=== PATIENT | male | born 1965 | race African-American/Black ===

== ENCOUNTER 2021-01-26 13:47 | Emergency (ER) | payer MEDICARE, SELFPAY ==
[2021-01-26 13:48] VITALS: BP 168/88; PULSE 51; RESP 14; TEMP 36.5; O2SAT 97; BMI 34.0
--- NOTE | 2021-01-26 14:16 | EDS_ITS ---
HPI History of Present Illness Chief Complaint: Rash Informant: patient Onset/Context/Timing Onset: Weeks (3) Context: Gradual Onset Timing: Continuous Quality: very itchy Location: upper back, tops of shoulders, a little on R lower leg Current Severity: Moderate Maximum Severity: Moderate Worsened by: unk Relieved by: nothing but not trying any specific treatments Associated Symptoms Associated Symptoms: none Narrative Narrative: Itchy rash on his upper back and tops of his shoulders, few patches on his right lower arenas, the only thing patient can think of that is different is he is wearing a new work shirt that he states was recycled from someone else and given to him. He has not changed any detergents or soaps/shampoos lately, denies any medication changes, denies any swelling, shortness of breath, lightheadedness, syncope. He denies any pain. [facility] Medical History Type 2 diabetes mellitus Home Medications hydrocortisone 1 applic TOPICAL TID PRN #20 g 01/26/21 [Rx Last Taken Unknown] prednisone 20 mg PO DAILY #5 tab 01/26/21 [Rx Last Taken Unknown] Allergy/AdvReac Type Severity Reaction Status Date / Time No Known Allergies Allergy Verified 01/26/21 13:48 Social History Smoking Status: Unknown if ever smoked ROS ROS ED Constitutional Constitutional ED: Denies chills or fever(s) Eyes Eyes: Denies blurry vision or change in vision ENT ENT ED: Denies throat swelling or tongue swelling Cardiovascular Cardiovascular: Denies chest pain or palpitations Respiratory/Chest Respiratory/Chest: Denies cough or dyspnea Gastrointestinal Gastrointestinal: Denies diarrhea, nausea or vomiting Musculoskeletal Musculoskeletal: Denies back pain, myalgias or neck pain Integumentary Reports rash; Denies abscess Neurologic Neurologic: Denies headache(s), paresthesias or weakness Allergic/Immunologic Allergic/Immunologic ED: Denies mouth swelling or tongue swelling EXAM Physical Exam Const Vital Signs: 01/26/21 13:48 Temperature 97.7 F L Temperature Source Temporal Pulse Rate 51 L Respiratory Rate 14 Blood Pressure 168/88 H Blood Pressure Mean 114 Pulse Ox 97 Oxygen Delivery Method Room Air Positive well nourished, well developed and obese General Appearance ED: well developed and NAD Nutritional Appearance: obese HEENT Reports moist mucous membranes Negative for trauma or tenderness Eyes PERRL and EOMs intact bilaterally Neck no lymphadenopathy and supple Resp normal respiratory effort and clear to auscultation bilaterally Cardio regular rate and regular rhythm Rate: Negative for tachycardic Neuro oriented x3 and CN's II-XII intact bilaterally Sensorium / Orientation: alert Sensory Exam: No sensory level loss detected Motor Exam: strength 5/5 throughout Psych mental status grossly normal and thought process normal Skin no wounds Skin Narrative: Patchy nontender rash consistent with urticaria with some dried areas as well across the patient's upper back, the worst area is on top of his shoulders but there is a fairly sharp demarcation anteriorly where it does not progress down into the chest. It also progresses into his upper arms bilaterally, but cuts off before the elbows. Couple of small patches on the anterior right lower leg, but nowhere else. MDM MDM MDM Narrative Medical decision making narrative: Patient states his new work shirt is short- sleeved. It may be causing a contact dermatitis here. I recommend putting a cotton shirt that he knows does not make him react underneath of it, and since he is itching so bad we will try a short course of low-dose prednisone since he is a diabetic, just for 5 days, if his sugars go up to the 350-400 range he should discontinue it immediately, and we will also prescribe him topical steroid. Follow-up with dermatology if this does not help and he is comfortable with that plan. No signs of anaphylaxis. Discharge Plan Triage Chief Complaint: Rash ED Provider: Lyndon Ballesteros Dx/Rx/DC Orders Clinical Impression: Contact dermatitis Instructions: ED Contact Dermatitis Prescriptions: New prednisone 20 mg tablet 20 mg PO DAILY Qty: 5 RF: 0 hydrocortisone 2.5 % cream 1 applic topical TID PRN (Reason: rash) Qty: 20 RF: 0 Primary Care Provider: Kasey Caraballo Referrals: Kasey Caraballo DO [Primary Care Provider] - Raleigh Kelley MD [STAFF PHYSICIAN] - 1-2 Weeks (if not improving w/ treatment) Disposition Disposition: Home, self care
== END 2021-01-26 14:32 | disposition home or self-care (01) ==
PROVIDERS: Emergency Provider Emergency Medicine; PCP Family Medicine
DX: L25.9 Unspecified contact dermatitis, unspecified cause (principal); E11.9 Type 2 diabetes mellitus without complications; E66.9 Obesity, unspecified; Z68.34 Body mass index [BMI] 34.0-34.9, adult
CPT/HCPCS: 99282

== ENCOUNTER → 2023-02-15 | Outpatient (CLI) | payer MEDICARE, SELFPAY | END | disposition home or self-care (01) | LOC: RAD 14:29 | PROVIDERS: PCP Family Medicine | DX: Z00.00 Encounter for general adult medical examination without abnormal findings (principal) ==

== ENCOUNTER → 2023-02-27 | Outpatient (CLI) | payer MEDICARE, SELFPAY ==
--- NOTE | 2023-02-27 19:00 | RAD_ITS ---
INDICATION: BACK PAIN EXAMINATION/TECHNIQUE: X-RAY - XR Spine Lumbar 2 or 3 Views COMPARISON: None. FINDINGS: VERTEBRAE: 4 nonrib-bearing lumbar type vertebra with presumed partial sacralization of L5. Levels numbered accordingly. Left L5-S1 transverse process pseudarthrosis.. No fracture or acute compression deformity. Mild chronic anterior vertebral height loss at the lower thoracic and upper lumbar spine. No spondylolisthesis. Preservation of the normal lumbar lordosis. Lower lumbar facet arthropathy at L3-L4, L4-5 and L5-S1.. DISCS: Mild disc height loss at L4-5.. INCLUDED ABDOMEN: Included bowel gas pattern is non-obstructive. RAD/Lumbar Spine 2 or 3 Views IMPRESSION: No evidence of acute injury. Lower lumbar spondylosis with multilevel facet arthropathy as above. 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 Levels numbered accordingly for purposes of this exam. Left L5-S1 transverse process pseudarthrosis noted. Electronically Signed: Enoc Hernández MD at 7:53 EDT ,
== END | disposition home or self-care (01) ==
LOC: RAD 18:52
PROVIDERS: PCP Family Medicine
DX: M54.9 Dorsalgia, unspecified (principal)
CPT/HCPCS: 72100